=== PATIENT | male | born 1970 | race African-American/Black ===

== ENCOUNTER 2022-08-18 14:43 | Inpatient (IN) | payer MEDICAID ==
[~2022-08-18] VITALS: Ht 170.2 cm; Wt 65.3 kg
[2022-08-18] MEDS ORDERED: HEPARIN SODIUM 25000 UNITS/D5W 250 ML IV PRN (17:15)
[2022-08-18] MEDS ORDERED: HEPARIN SODIUM,PORCINE 5,000 UNITS/ML VIAL IVP PRN ×2 (17:15)
[2022-08-18 18:17] LABS: BASOPHILS % (AUTO) 0.8 % (0.0-2.0); EOSINOPHILS % (AUTO) 0.4 % (1.0-6.0); HEMATOCRIT 45.5 % (41-53); HEMOGLOBIN 15.4 g/dL (13.5-17.5); LYMPHOCYTES % (AUTO) 9.4 % (22.0-44.0); MEAN CORPUSCULAR HEMOGLOBIN 31.6 pg (26.0-34.0); MEAN CORPUSCULAR HGB CONC 33.7 G/dL (31.0-37.0); MEAN CORPUSCULAR VOLUME 94 fL (80-100); MONOCYTES # (AUTO) 0.6 K/uL (0.1-1.0); MONOCYTES % (AUTO) 5.2 % (2.0-9.0); NEUTROPHILS # (AUTO) 9.2 K/uL (1.8-7.7); NEUTROPHILS % (AUTO) 84.2 % (40.0-70.0); PLATELET COUNT (AUTO) 254 K/uL (150-450); RED BLOOD CELL COUNT(AUTO) 4.85 MIL/uL (4.50-5.90); RED CELL DISTRIBUTION WIDTH 13.1 % (11.5-14.5)
[2022-08-18 18:32] LABS: ANION GAP 11 mmol/L (8-16); CALCIUM, TOTAL 9.7 mg/dL (8.8-10.5); CARBON DIOXIDE 25 mmol/L (22-29); CHLORIDE 101 mmol/L (98-107); CREATININE 1.14 mg/dL (0.60-1.30); GLOMERULAR FILTR. RATE CALC > 60 mL/min (>60); GLUCOSE,RANDOM 91 mg/dL (70-110); POTASSIUM 4.3 mmol/L (3.5-5.1); SODIUM SERUM 137 mmol/L (136-145); UREA NITROGEN, BLOOD 21 mg/dL (7-18)
[2022-08-18 18:38] LABS: ALANINE AMINOTRANSFERASE 20 U/L (12-78); ALBUMIN 4.1 g/dL (3.4-5.0); ALKALINE PHOSPHATASE 89 U/L (46-116); ASPARTATE AMINOTRANSFERASE 28 U/L (15-37); BILIRUBIN,TOTAL 0.5 mg/dL (0.1-1.0); LIPASE 65 U/L (73-393); TOTAL PROTEIN, SERUM 8.4 g/dL (6.4-8.2)
[2022-08-18 18:39] LABS: LACTIC ACID 1.9 mmol/L (0.4-2.0)
[2022-08-18 18:46] LABS: D-DIMER 13.89 mg/L FEU (0.00-0.50); PROTHROMBIN TIME 10.4 SEC (9.4-11.6)
[2022-08-18 18:48] LABS: B-TYPE NATRIURETIC PEPTIDE 7 pg/mL (0-100)
[2022-08-18 19:52] LABS: COVID AG,FIA SOURCE NASOPHARYNGEAL
[2022-08-18] MEDS ORDERED: OxyCODONE HCL/ACETAMINOPHEN 5-325 MG TABLET PO PRN (20:00)
[2022-08-18] MEDS ORDERED: ACETAMINOPHEN 325 MG TABLET PO PRN (20:00)
[2022-08-18] MEDS: DOCUSATE SODIUM 100 MG CAPSULE PO SCH (20:06)
[2022-08-18] MEDS: APIXABAN 5 MG TABLET PO SCH (20:27)
[2022-08-18 21:30] VITALS: BP 96/65
[2022-08-19 03:50] VITALS: BP 101/65
[2022-08-19 07:02] LABS: APPEARANCE,URINE CLEAR (CLEAR); BILIRUBIN,URINE NEGATIVE (NEGATIVE); GLUCOSE, URINE (UA) NEGATIVE (NEGATIVE); KETONES,URINE NEGATIVE (NEGATIVE); LEUKOCYTE ESTERASE ,URINE MODERATE (NEGATIVE); NITRATE,URINE POSITIVE (NEGATIVE); OCCULT BLOOD,URINE MODERATE (NEGATIVE); PH,URINE 5.5 (5.0-8.0); PROTEIN,URINE NEGATIVE (NEGATIVE); SPECIFIC GRAVITIY, URINE 1.022 (1.003-1.030); UROBILINOGEN,URINE <=1.0 mg/dL (<=1.0)
[2022-08-19 07:09] LABS: AMPHET/METH SCREEN,URINE POSITIVE (NEGATIVE); BARBITURATE SCREEN, URINE NEGATIVE (NEGATIVE); BENZODIAZEPINES SCREEN,URINE NEGATIVE (NEGATIVE); CANNABINOID SCREEN,URINE NEGATIVE (NEGATIVE); COCAINE SCREEN,URINE NEGATIVE (NEGATIVE); METHADONE SCREEN, URINE NEGATIVE (NEGATIVE); OPIATE SCREEN,URINE NEGATIVE (NEGATIVE); PHENCYCLIDINE SCREEN,URINE NEGATIVE (NEGATIVE)
[2022-08-19 07:11] LABS: BACTERIA,URINE Many /HPF (None Seen); RBC,URINE 0-2 /HPF (0-2); SQUAMOUS EPITHELIAL CELL,UR Few /LPF (None Seen)
[2022-08-19 07:35] VITALS: BP 91/63
[2022-08-19] MEDS ORDERED: SODIUM CHLORIDE 0.9% 500 ML IV ONE (10:21)
[2022-08-19] MEDS: DOCUSATE SODIUM 100 MG CAPSULE PO SCH ×2 (10:31→20:32)
[2022-08-19] MEDS: FAMOTIDINE 20 MG TABLET PO SCH (10:32)
[2022-08-19] MEDS: APIXABAN 5 MG TABLET PO SCH ×2 (10:32→20:32)
[2022-08-19] MEDS: CefTRIAXone 1 GM/DEXTROSE 50 ML IV SCH (11:55)
[2022-08-19 15:28] VITALS: BP 94/60
[2022-08-19 19:30] VITALS: BP 87/51
[2022-08-20] MEDS ORDERED: SODIUM CHLORIDE 0.9% 250 ML IV ONE (03:00)
[2022-08-20] MEDS ORDERED: SODIUM CHLORIDE 0.9% 1,000 ML IV SCH (03:00)
[2022-08-20 06:00] VITALS: BP 91/55
[2022-08-20 07:19] VITALS: BP 90/58
[2022-08-20] MEDS: DOCUSATE SODIUM 100 MG CAPSULE PO SCH (08:30)
[2022-08-20] MEDS: APIXABAN 5 MG TABLET PO SCH (08:30)
[2022-08-20] MEDS: FAMOTIDINE 20 MG TABLET PO SCH (08:30)
[2022-08-20] MEDS: CefTRIAXone 1 GM/DEXTROSE 50 ML IV SCH (10:46)
[2022-08-20] MEDS ORDERED: APIX5TAB PO (15:26)
[2022-08-20] MEDS ORDERED: CIPR500T10 PO (15:28)
[2022-08-20 15:35] VITALS: BP 93/57
[2022-08-25] MEDS ORDERED: APIXABAN 5 MG TABLET PO SCH (21:00)
== END 2022-08-20 16:00 | disposition home or self-care (01) | DRG 197 ==
LOC: EMS 14:55 → 6N 20:01
PROVIDERS: ADMIT Internal Medicine; ATTEND Internal Medicine
DX: I82.402 Acute embolism and thrombosis of unspecified deep veins of left lower extremity (principal); N39.0 Urinary tract infection, site not specified; Z20.822 Contact with and (suspected) exposure to COVID-19; Z59.02 Unsheltered homelessness; Z79.01 Long term (current) use of anticoagulants
CPT/HCPCS: 71045; 80053; 80307; 81001; 83605; 83690; 83735; 83880; 84145; 84484; 85025; 85379; 85610; 87040; 87086; 87186; 93005; 93926; 93971; G0480; J0696; J7030; J7040; J7050; 36415-L1; 36415-TC